=== PATIENT | male | born 1980 | race Caucasian/White ===

== ENCOUNTER 2017-12-09 02:17 | Emergency (ER) | payer SELFPAY ==
[2017-12-09] MEDS ORDERED: MORPHINE 4 MG/ML SYR ONE ×2 (02:49→03:46)
[2017-12-09] MEDS ORDERED: ONDANSETRON 4 MG/2 ML VIAL ONE (02:50)
--- NOTE | 2017-12-09 03:53 | EDPHYS ---
Physician Documentation [facility] Name: Baltazar Black Age: 37 yrs Sex: Male : 1980 Arrival Date: 12/09/2017 Time: 02:21 Bed 4 Private MD: ED Physician Cata Sullivan HPI: 12/09 02:29 This 37 yrs old Male presents to ER via Unassigned with complaints of leg ma2 pain. 02:29 The patient presents with a deformity. The complaints affect the right ankle. Context: ma2 The problem was sustained at home. Onset: The symptoms/episode began/occurred suddenly, 1 hour(s) ago. Associated signs and symptoms: Pertinent positives: Pertinent negatives fever, numbness, swelling, vomiting. Severity of symptoms: At their worst the symptoms were severe, declined pain medicine . Historical: - Allergies: 02:33 No Known Allergies; fc - Home Meds: 02:33 None [Active]; fc - PMHx: 02:33 None; fc - PSHx: 02:33 None; fc - Immunization history:: Last tetanus immunization: up to date. - Social history:: Patient uses alcohol, Patient/guardian denies using street drugs, IV drugs, The patient lives with family, Smoking status: Patient uses tobacco products, smokes one pack cigarettes per day. Patient uses. ROS: 02:29 MS/extremity: Positive for injury or acute deformity, Negative for abrasion, erythema, ma2 swelling, tenderness, warmth. 02:29 All other systems are negative. 03:53 Eyes: Negative for injury, pain, redness, and discharge. ma2 Exam: 02:29 Constitutional: This is a well developed, well nourished patient who is awake, alert, ma2 and in no acute distress. Head/Face: Normocephalic, atraumatic. Eyes: Pupils equal round and reactive to light, extra-ocular motions intact. Lids and lashes normal. Conjunctiva and sclera are non-icteric and not injected. Cornea within normal limits. Periorbital areas with no swelling, redness, or edema. ENT: Nares patent. No nasal discharge, no septal abnormalities noted. Tympanic membranes are normal and external auditory canals are clear. Oropharynx with no redness, swelling, or masses, exudates, or evidence of obstruction, uvula midline. Mucous membranes moist. Neck: Trachea midline, no thyromegaly or masses palpated, and no cervical lymphadenopathy. Supple, full range of motion without nuchal rigidity, or vertebral point tenderness. No Meningismus. Chest/axilla: Normal chest wall appearance and motion. Nontender with no deformity. No lesions are appreciated. Cardiovascular: Regular rate and rhythm with a normal S1 and S2. No gallops, murmurs, or rubs. Normal PMI, no JVD. No pulse deficits. Respiratory: Lungs have equal breath sounds bilaterally, clear to auscultation and percussion. No rales, rhonchi or wheezes noted. No increased work of breathing, no retractions or nasal flaring. Back: No spinal tenderness. No costovertebral tenderness. Full range of motion. Male : Normal genitalia with no discharge or lesions. Skin: Warm, dry with normal turgor. Normal color with no rashes, no lesions, and no evidence of cellulitis. Neuro: Awake and alert, GCS 15, oriented to person, place, time, and situation. Cranial nerves II-XII grossly intact. Motor strength 5/5 in all extremities. Sensory grossly intact. Cerebellar exam normal. Normal gait. 02:29 Musculoskeletal/extremity: ROM: right ankle deformity and pain, no skin cuts , Circulation is intact in all extremities. Vital Signs: 02:33 BP 130 / 97; Pulse 97; Resp 18; Temp 98.2(O); Pulse Ox 99% on R/A; Weight 83.91 kg (R); fc Height 6 ft. 1 in. (185.42 cm) (R); Pain 10/10; 04:30 BP 110 / 69; Pulse 89; Resp 20; Pulse Ox 98% on R/A; tl2 05:50 BP 120 / 75; Pulse 88; Resp 14; Pulse Ox 98% on R/A; ao 02:33 Body Mass Index 24.41 (83.91 kg, 185.42 cm) MDM: 02:29 Differential diagnosis: closed fracture, contusion, abrasion, tendonitis. ma2 02:32 Patient medically screened. ma2 03:50 Data reviewed: vital signs, nurses notes, lab test result(s), EKG, radiologic studies. ma2 Counseling: I had a detailed discussion with the patient and/or guardian regarding: the historical points, exam findings, and any diagnostic results supporting the discharge/admit diagnosis, the presence of at least one elevated blood pressure reading (>120/80) during this emergency department visit, the need to transfer to another facility, for higher level of care. ED course: patient has comminuted tib/fib closed frx, discussed with dr. roth who advised to transfer for higher level of care, trauma not available . 12/09 02:28 Order name: XRAY Tib Fib RIGHT al2 12/09 02:32 Order name: CT Head C Spine al2 12/09 03:34 Order name: Ankle Right 2 View EDMS 12/09 03:34 Order name: Foot Right 2 View EDMS 12/09 02:28 Order name: Splint - Long Leg: Posterior w/ Stirrup: short; Complete Time: 04:00 ma2 Administered Medications: 02:53 Drug: morphine 4 mg Route: IVP; Site: right antecubital; tl2 03:30 Follow up: Response: No adverse reaction tl2 02:53 Drug: Zofran 4 mg Route: IVP; Site: right antecubital; tl2 03:30 Follow up: Response: No adverse reaction tl2 04:29 Drug: morphine 4 mg Route: IVP; Site: right antecubital; tl2 05:02 Follow up: Response: No adverse reaction; Pain is decreased tl2 Disposition: 12/09/17 03:53 Transfer ordered to [facility]. Diagnosis are Comminuted fracture of shaft of tibia, Comminuted fracture of shaft of fibula. - Reason for transfer: Higher level of care. - Accepting physician is Dr. Fletcher . - Condition is Stable. - Problem is new. - Symptoms are unchanged. Signatures: Dispatcher [employer] EDNV Araceli Frost RN RN fc Deloris Sue RN RN lp1 Kim Kim RN RN tl2 Cata Sullivan MD MD ma2 Corrections: (The following items were deleted from the chart) 03:34 02:29 Ankle Right 3 View+RAD.RAD.BRZ ordered. EDNV EDNV 03:34 02:29 Foot Right 3 View+RAD.RAD.BRZ ordered. EDNV EDMS 05:14 03:53 12/09/2017 03:53 Transfer ordered to [facility]. Diagnosis is Comminuted ma2 fracture of shaft of tibia; Comminuted fracture of shaft of fibula. Reason for transfer: Higher level of care. Accepting physician is [facility]. Condition is Stable. Problem is new. Symptoms are unchanged. ma2 06:42 05:14 12/09/2017 03:53 Transfer ordered to [facility]. Diagnosis is Comminuted lp1 fracture of shaft of tibia; Comminuted fracture of shaft of fibula. Reason for transfer: Higher level of care. Accepting physician is Dr. Fletcher . Condition is Stable. Problem is new. Symptoms are unchanged. ma2
--- NOTE | 2017-12-09 03:53 | ER ---
Nurse's Notes [facility] Name: Baltazar Black Age: 37 yrs Sex: Male : 1980 Arrival Date: 12/09/2017 Time: 02:21 Bed 4 Private MD: Diagnosis: Comminuted fracture of shaft of tibia;Comminuted fracture of shaft of fibula Presentation: 12/09 02:29 Presenting complaint: Patient states: that he was running down the stairs and he got fc his right leg stuck in between the steps. Right ankle swollen and obviously displaced, pt has no control over right foot. Pulses remain present. Pt also has abrasion to right face and left knee. Transition of care: patient was not received from another setting of care. Onset of symptoms was December 09, 2017 at 02:00. Initial Sepsis Screen: Does the patient meet any 2 criteria? HR > 90 bpm. Yes Does the patient have a suspected source of infection? No. Patient's initial sepsis screen is negative. Care prior to arrival: None. 02:29 Method Of Arrival: Wheelchair 02:29 Acuity: RACHELL 2 fc Historical: - Allergies: 02:33 No Known Allergies; fc - Home Meds: 02:33 None [Active]; fc - PMHx: 02:33 None; fc - PSHx: 02:33 None; fc - Immunization history:: Last tetanus immunization: up to date. - Social history:: Patient uses alcohol, Patient/guardian denies using street drugs, IV drugs, The patient lives with family, Smoking status: Patient uses tobacco products, smokes one pack cigarettes per day. Patient uses. Screenin:34 Abuse screen: Denies threats or abuse. Nutritional screening: No deficits noted. fc Tuberculosis screening: No symptoms or risk factors identified. Fall Risk Fall in past 12 months (25 points). Secondary diagnosis (15 points) impaired mobility, IV access (20 points). Ambulatory Aid- None/Bed Rest/Nurse Assist (0 pts). Gait- Weak (10 pts.). Mental Status- Overestimates/Forgets Limitations (15 pts.). Total Williamson Fall Scale indicates High Risk Score (45 or more points). Fall prevention measures have been instituted. Side Rails Up X 2 Placed Close to Nursing Station Frequent Obs/Assessments Occuring As available patient and family educated on Fall Prevention Program and Strategies. Assessment: 02:40 General: Appears in no apparent distress. uncomfortable, Behavior is cooperative, tl2 appropriate for age. General: Smells of alcohol. Pain: Complains of pain in right ankle. Neuro: Level of Consciousness is awake, alert, obeys commands, Oriented to person, place, time, situation. Cardiovascular: Denies chest pain. Cardiovascular: Pulses are palpable in right posterior tibial artery and right dorsalis pedis artery. Respiratory: Airway is patent Respiratory effort is even, unlabored, Respiratory pattern is regular, symmetrical. GI: No signs and/or symptoms were reported involving the gastrointestinal system. Derm: Skin is pink, warm \T\ dry. Musculoskeletal: Circulation, motion, and sensation intact. Swelling present in right ankle. Injury Description: Abrasion sustained to right cheek, left knee is scabbed, Deformity sustained to right ankle is displaced, protruding, was sustained 30-60 minutes ago. 03:51 Reassessment: Patient appears in no apparent distress at this time. Patient and/or tl2 family updated on plan of care and expected duration. Pain level reassessed. Patient is alert, oriented x 3, equal unlabored respirations, skin warm/dry/pink. Pt stated he did not want pain medicine right now. Will hold morphine for before transfer. 05:01 Reassessment: awaiting on acceptance for transfer. tl2 05:22 Reassessment: Report called to Katie Jennings RN at [facility] ER. lp1 05:57 Reassessment: Patient appears in no apparent distress at this time. Patient and/or ao family updated on plan of care and expected duration. Pain level reassessed. Patient is alert, oriented x 3, equal unlabored respirations, skin warm/dry/pink. waiting on EMS for patient to be transferred. 06:35 Reassessment: EMS at bedside. lp1 Vital Signs: 02:33 BP 130 / 97; Pulse 97; Resp 18; Temp 98.2(O); Pulse Ox 99% on R/A; Weight 83.91 kg (R); fc Height 6 ft. 1 in. (185.42 cm) (R); Pain 10/10; 04:30 BP 110 / 69; Pulse 89; Resp 20; Pulse Ox 98% on R/A; tl2 05:50 BP 120 / 75; Pulse 88; Resp 14; Pulse Ox 98% on R/A; ao 02:33 Body Mass Index 24.41 (83.91 kg, 185.42 cm) ED Course: 02:21 Patient arrived in ED. ds1 02:25 Cata Sullivan MD is Attending Physician. ma2 02:32 Triage completed. fc 02:33 Arm band placed on Patient placed in an exam room, on a stretcher. fc 02:34 Patient has correct armband on for positive identification. Placed in gown. Bed in low fc position. Call light in reach. Side rails up X2. Pulse ox on. NIBP on. 02:34 No provider procedures requiring assistance completed. fc 02:39 Kim Kim, JOSE is Primary Nurse. tl2 02:40 Inserted saline lock: 20 gauge in right antecubital area, using aseptic technique. tl2 Blood collected. 03:25 X-ray completed. Portable x-ray completed in exam room. Patient tolerated procedure mh1 poorly. 03:32 CT Head C Spine In Process Unspecified. EDMS 03:35 XRAY Tib Fib RIGHT In Process Unspecified. EDMS 03:35 Ankle Right 2 View In Process Unspecified. EDMS 03:35 Foot Right 2 View In Process Unspecified. EDMS 06:36 Patient transferred, IV remains in place. lp1 Administered Medications: 02:53 Drug: morphine 4 mg Route: IVP; Site: right antecubital; tl2 03:30 Follow up: Response: No adverse reaction tl2 02:53 Drug: Zofran 4 mg Route: IVP; Site: right antecubital; tl2 03:30 Follow up: Response: No adverse reaction tl2 04:29 Drug: morphine 4 mg Route: IVP; Site: right antecubital; tl2 05:02 Follow up: Response: No adverse reaction; Pain is decreased tl2 Outcome: 03:53 ER care complete, transfer ordered by . ma2 06:35 Transferred by ground EMS to [facility], Transfer form lp1 completed. X-rays sent w/ patient. 06:35 Condition: stable 06:35 Instructed on the need for transfer. 06:42 Patient left the ED. lp1 Signatures: Dispatcher [employer] EDMS Leanne Fair 1 Araceli Frost RN RN Dee Dee García ds1 Deloris Sue RN RN lp1 Yuri Pearson RN RN ao Julio, Kim RN RN tl2 Cata Sullivan MD MD ma2
--- NOTE | 2017-12-09 11:12 | RAD REPORT ---
EXAM DESCRIPTION: CT - [id number] - 12/09/2017 6:59 am CLINICAL HISTORY: Trauma, head and neck injury. COMPARISON: None. TECHNIQUE: Axial 5 mm thick images of the head were obtained. Axial 2 mm thick images of the cervical spine were obtained with sagittal and coronal reconstruction images generated and reviewed. All CT scans are performed using dose optimization technique as appropriate and may include automated exposure control or mA/KV adjustment according to patient size. FINDINGS: CT HEAD WITHOUT CONTRAST: No acute hemorrhage, hydrocephalus or extra-axial collection is identified.No areas of brain edema or midline shift. The paranasal sinuses and mastoids are clear.The calvarium is intact. CT CERVICAL SPINE WITHOUT CONTRAST: No fracture or subluxation.No prevertebral soft tissues swelling is identified. IMPRESSION: No acute intracranial or cervical spine findings.
--- NOTE | 2017-12-09 12:29 | RAD REPORT ---
EXAM DESCRIPTION: RAD - Tib Fib Right - 12/09/2017 3:34 am CLINICAL HISTORY: Fall, right leg pain COMPARISON: None. FINDINGS: Right tibia/ fibula, ankle and foot multiple projections. Angulated oblique fractures of the distal tibia and fibula noted. A small bony fragment is seen exten ding posterior to the lower leg. Spiral fracture also seen involving the proximal fibular shaft. Moderate soft tissue swelling is evident.
--- NOTE | 2017-12-10 16:52 | RAD REPORT ---
EXAM DESCRIPTION: RAD - Foot Right 2 View - 12/09/2017 3:35 am CLINICAL HISTORY: Fall, right leg pain COMPARISON: None. FINDINGS: Right tibia/ fibula, ankle and foot multiple projections. Angulated oblique fractures of the distal tibia and fibula noted. A small bony fragment is seen exten ding posterior to the lower leg. Spiral fracture also seen involving the proximal fibular shaft. Moderate soft tissue swelling is evident.
--- NOTE | 2017-12-10 16:52 | RAD REPORT ---
EXAM DESCRIPTION: RAD - Ankle Right 2 View - 12/09/2017 3:34 am CLINICAL HISTORY: Fall, right leg pain COMPARISON: None. FINDINGS: Right tibia/ fibula, ankle and foot multiple projections. Angulated oblique fractures of the distal tibia and fibula noted. A small bony fragment is seen exten ding posterior to the lower leg. Spiral fracture also seen involving the proximal fibular shaft. Moderate soft tissue swelling is evident.
== END 2017-12-09 06:42 | disposition short-term general hospital (02) ==
LOC: ER 02:17
PROC: 2W3LX1Z Immobilization of Right Lower Extremity using Splint (ICD-10-PCS; principal; 2017-12-09)
DX: S82.251A Displaced comminuted fracture of shaft of right tibia, initial encounter for closed fracture (principal); S82.451A Displaced comminuted fracture of shaft of right fibula, initial encounter for closed fracture; W10.9XXA Fall (on) (from) unspecified stairs and steps, initial encounter; Y93.02 Activity, running; Y92.9 Unspecified place or not applicable; F17.210 Nicotine dependence, cigarettes, uncomplicated
CPT/HCPCS: 70450; 72125; 96374; 96375; 99285; J2405